=== PATIENT | female | born 1980 | race Caucasian/White ===

== ENCOUNTER → 2019-02-06 | Outpatient (CLI) | payer BC ==
--- NOTE | 2019-02-06 10:07 | RADIOLOGY IMAGING REPORT ---
FACILITY: [facility] [place] PATIENT NAME: Halley Mehta : 1980 MR: [id number] V: [id number] EXAM DATE: ORDERING PHYSICIAN: SHARONDA STEWART TECHNOLOGIST: Location: [facility] [place] Patient: Halley Mehta : 1980 Visit/Account:[id number] Date of Sevice: 02/06/2019 Exam type: L-SPINE 2 OR 3 VIEW History: Low back pain, left leg pain x3 months, no known trauma Comparison: None. Findings: There five nonrib-bearing lumbar-type vertebral bodies present. There is no evidence of acute fractu res or subluxations. This mild disc space narrowing at L5-S1 with tiny anterior osteophytes. IMPRESSION: 1. Very mild spondylotic changes L5-S1. If patient's pain continues MR is recommended Report Dictated By: Daniela Melendrez MD at 02/06/2019 10:02 AM Report E-Signed By: Daniela Melendrez MD at 02/06/2019 10:03 AM WSN:[id number]
== END ==
LOC: RAD 09:16
PROVIDERS: ATTEND Family Medicine
DX: M54.5 Low back pain (principal)
CPT/HCPCS: 72100